=== PATIENT | female | born 1930 | race African-American/Black ===

== ENCOUNTER → 2018-08-01 | Outpatient (CLI) | payer BC ==
[2016-04-05 15:09] VITALS: BP 162/72
--- NOTE | 2018-08-01 15:08 | RAD ---
Indication: Claudication of both lower x-rays TECHNIQUE: Ultrasound ankle-brachial index. COMPARISON: None FINDINGS: Right side: The brachial artery pressures 116. Posterior tibial artery pressure 110. Dorsalis pedis artery pressure 112. Ankle brachial index of 0.93 (borderline). Left side: The brachial artery pressures 120. Posterior tibial artery pressure 105. Dorsalis pedis artery pressure 102. Ankle-brachial index of 0.87 (abnormal). IMPRESSION: As above. Electronically signed by: Navjot Villanueva DO (08/01/2018 3:04 PM) [facility]
== END | disposition home or self-care (01) ==
LOC: US 14:26
PROVIDERS: ATTEND Family Medicine
DX: I73.89 Other specified peripheral vascular diseases (principal)
CPT/HCPCS: 93922

== ENCOUNTER 2019-12-27 11:32 | Inpatient (IN) | payer BC, MEDICAID ==
[~2019-12-27] VITALS: Ht 170.2 cm; Wt 74.8 kg
[2019-12-27] MEDS ORDERED: ASPIRIN CHEWABLE 81 MG TABLET. PO ONE (11:45)
--- NOTE | 2019-12-27 12:11 | PHYS DOC ---
Past Medical History Past Medical History: Diabetes-Type II, High Cholesterol, Hypertension Past Surgical History: Hysterectomy Smoking Status: Never Smoker Alcohol Use: None Drug Use: None General Adult EDM: Chief Complaint: CHEST PAIN HPI: HPI: Patient is an 89-year-old female with a history of diabetes who presents with a one-week history of central chest discomfort. She stated got a little bit worse today. She denies any nausea or diaphoresis. She states typically when she gets up and is moving around it tends to get better. She is never had a heart attack before. She says prior to a week ago she does not recall having any similar symptoms. This morning, she was a little short of breath. She denies any fever chills or sweats. There is been no cough congestion or hemoptysis. [] Review of Systems: Review of Systems: Constitutional: Denies fever or chills. [] Eyes: Denies change in visual acuity. [] HENT: Denies nasal congestion or sore throat. [] Respiratory: Per HPI [] Cardiovascular: Per HPI [] GI: Denies abdominal pain, nausea, vomiting, bloody stools or diarrhea. [] : Denies dysuria. [] Musculoskeletal: Denies back pain or joint pain. [] Integument: Denies rash. [] Neurologic: Denies headache, focal weakness or sensory changes. [] Endocrine: Denies polyuria or polydipsia. [] Lymphatic: Denies swollen glands. [] Psychiatric: Denies depression or anxiety. [] Heart Score: HEART Score for Chest Pain: HEART Score for Chest Pain Response (Comments) Value History Moderately Suspicious 1 ECG Nonspecific Repolarizatio 1 Age > 65 2 Risk Factors 1 or 2 Risk Factors 1 Troponin >1-<3x Normal Limit 1 Total 6 Risk Factors: Risk Factors: DM, Current or recent (<one month) smoker, HTN, HLP, family history of CAD, obesity. Risk Scores: Score 0 - 3: 2.5% MACE over next 6 weeks - Discharge Home Score 4 - 6: 20.3% MACE over next 6 weeks - Admit for Clinical Observation Score 7 - 10: 72.7% MACE over next 6 weeks - Early Invasive Strategies Current Medications: Current Medications Medications (Trade) Dose Ordered Sig/Cipriano Start Time Stop Time Status Last Admin Dose Admin Aspirin (Aspirin Chewable) 324 mg 1X ONCE 12/27/19 11:45 5/10/20 11:51 DC Allergies: Allergies: Allergies Coded Allergies Type Severity Reaction Last Updated Verified No Known Drug Allergies 04/05/16 No Physical Exam: PE: Constitutional: Well developed, well nourished, no acute distress, non-toxic appearance. [] HENT: Normocephalic, atraumatic, bilateral external ears normal, oropharynx moist, no oral exudates, nose normal. [] Eyes: PERRLA, EOMI, conjunctiva normal, no discharge. [] Neck: Normal range of motion, no tenderness, supple, no stridor. [] Cardiovascular:Heart rate regular rhythm, no murmur [] Lungs & Thorax: Bilateral breath sounds clear to auscultation [] Abdomen: Bowel sounds normal, soft, no tenderness, no masses, no pulsatile masses. [] Skin: Warm, dry, no erythema, no rash. [] Back: No tenderness, no CVA tenderness. [] Extremities: No tenderness, no cyanosis, no clubbing, ROM intact, no edema. [] Neurologic: Alert and oriented X 3, normal motor function, normal sensory function, no focal deficits noted. [] Psychologic: Affect normal, judgement normal, mood normal. [] Current Patient Data: Vital Signs: Vital Signs Date Time Temp Pulse Resp B/P (MAP) Pulse Ox O2 Delivery O2 Flow Rate FiO2 12/27/19 11:32 98.2 73 16 143/89 (107) 98 Room Air 98.2 EKG: EKG: EKG: Normal sinus rhythm left axis mild LVH rate is [address]-T changes [] Radiology/Procedures: Radiology/Procedures: [] Course & Med Decision Making: Course & Med Decision Making Pertinent Labs and Imaging studies reviewed. (See chart for details) [ED course: Evaluation reveals an 89-year-old female with atypical sounding chest discomfort that is been ongoing for some time now. Her EKG did not show any obvious ischemic changes but she did have a elevated troponin and some ongoing vague chest discomfort. Therefore she was given Lovenox 1 mg/kg subcu and will be admitted to the hospitalist with a cardiology consult.] Dragon Disclaimer: Dragadelina Disclaimer: This electronic medical record was generated, in whole or in part, using a voice recognition dictation system. Departure Departure Impression: Primary Impression: Chest pain Disposition: ADMITTED INPATIENT Admitting Physician: JUANI Condition: STABLE Referrals: SANDEEP KIM MD (PCP) OZ ROSS DO December 27, 2019 12:11
[2019-12-27 12:19] LABS: BASO % 1 % (0-3); EOS # 0.1 x10^3/uL (0.0-0.7); EOS % 1 % (0-3); HEMATOCRIT 33.3 % (36.0-47.0); HEMOGLOBIN 10.9 g/dL (12.0-15.5); LYMPH % 24 % (24-48); MEAN CORPUSCULAR HEMOGLOBIN 28 pg (25-35); MEAN CORPUSCULAR HGB CONC 33 g/dL (31-37); MEAN CORPUSCULAR VOLUME 85 fL (79-100); MONO # 0.4 x10^3/uL (0.0-1.1); MONO % 10 % (0-9); NEUT # 2.8 x10^3/uL (1.8-7.7); NEUT % 64 % (31-73); PLATELET COUNT 147 x10^3/uL (140-400); RED BLOOD COUNT 3.89 x10^6/uL (3.50-5.40); RED CELL DISTRIBUTION WIDTH 15.2 % (11.5-14.5); WHITE BLOOD COUNT 4.3 x10^3/uL (4.0-11.0)
[2019-12-27 12:28] LABS: CALCIUM 9.2 mg/dL (8.5-10.1); CREATININE 1.2 mg/dL (0.6-1.0); GFR 51.2; POTASSIUM 3.7 mmol/L (3.5-5.1)
[2019-12-27 12:33] LABS: ALBUMIN 3.6 g/dL (3.4-5.0); ALBUMIN/GLOBULIN RATIO 1.1 (1.0-1.7); TOTAL BILIRUBIN 0.6 mg/dL (0.2-1.0); TOTAL PROTEIN 6.9 g/dL (6.4-8.2)
--- NOTE | 2019-12-27 12:41 | PDOC1 ---
History and Physical Date of Admission Date of Admission DATE: 12/27/19 TIME: 12:41 Identification/Chief Complaint Chief Complaint seen in er with chest pain, presented after attending [facility] today, 89-year-old female with a history of diabetes who presents with a one-week history of central chest discomfort. worse today. // denies any nausea or diaphoresis. states typically when she gets up and is moving around it tends to get better. no hx [place], [place] She says prior to a week ago she does not recall having any similar symptoms. This morning, she was a little short of breath. She denies any fever chills or sweats. no cough congestion or hemoptysis/ FEVER Past Medical History Past Medical History Past Medical History Past Medical History Past Medical History: Diabetes-Type II, High Cholesterol, Hypertension Past Surgical History: Hysterectomy Smoking Status: Never Smoker Alcohol Use: None Drug Use: None fhx HTN Family History Family History: Hypertension Social History Smoke: No ALCOHOL: none Drugs: None Current Medications Current Medications Current Medications Aspirin (Aspirin Chewable) 324 mg 1X ONCE PO ; Start 12/27/19 at 11:45; Stop 12/27/19 at 11:51; Status DC Allergies Allergies: Coded Allergies: No Known Drug Allergies (Unverified , 04/05/16) ROS Review of System Review of Systems: 14 PT ROS OTHERWISE NEG Review of Systems: Constitutional: Denies fever or chills. [] Eyes: Denies change in visual acuity. [] HENT: Denies nasal congestion or sore throat. [] Respiratory: Per HPI [] Cardiovascular: Per HPI [] GI: Denies abdominal pain, nausea, vomiting, bloody stools or diarrhea. [] : Denies dysuria. [] Musculoskeletal: Denies back pain or joint pain. [] Integument: Denies rash. [] Neurologic: Denies headache, focal weakness or sensory changes. [] Endocrine: Denies polyuria or polydipsia. [] Lymphatic: Denies swollen glands. [] Psychiatric: Denies depression or anxiety. [] Physical Exam Physical Exam Physical Exam: PE: Constitutional: Well developed, well nourished, no acute distress, non-toxic appearance. [] HENT: Normocephalic, atraumatic, bilateral external ears normal, oropharynx ju st, no oral exudates, nose normal. [] Eyes: PERRLA, EOMI, conjunctiva normal, no discharge. [] Neck: Normal range of motion, no tenderness, supple, no stridor. [] Cardiovascular:Heart rate regular rhythm, no murmur [] Lungs & Thorax: Bilateral breath sounds clear to auscultation [] Abdomen: Bowel sounds normal, soft, no tenderness, no masses, no pulsatile masses. [] Skin: Warm, dry, no erythema, no rash. [] Back: No tenderness, no CVA tenderness. [] Extremities: No tenderness, no cyanosis, no clubbing, ROM intact, no edema. [] Neurologic: Alert and oriented X 3, normal motor function, normal sensory function, no focal deficits noted. [] Psychologic: Affect normal, judgement normal, mood normal. [] General: Alert, Oriented X3, Cooperative HEENT: EOMI, Mucous membr. moist/pink Lungs: Clear to auscultation, Normal air movement Heart: RRR Breasts: Not examined Abdomen: Normal bowel sounds, Soft Rectal Exam: not examined PELVIC: Examination not indicated Extremities: No cyanosis Neuro: Normal speech, Cranial nerves 3-12 NL Psych/Mental Status: Mental status NL, Mood NL Vitals Vitals Vital Signs Date Time Temp Pulse Resp B/P (MAP) Pulse Ox O2 Delivery O2 Flow Rate FiO2 12/27/19 11:32 98.2 73 16 143/89 (107) 98 Room Air 98.2 Labs Labs Laboratory Tests Test 12/27/19 12:10 White Blood Count 4.3 x10^3/uL (4.0-11.0) Red Blood Count 3.89 x10^6/uL (3.50-5.40) Hemoglobin 10.9 g/dL (12.0-15.5) Hematocrit 33.3 % (36.0-47.0) Mean Corpuscular Volume 85 fL (79-100) Mean Corpuscular Hemoglobin 28 pg (25-35) Mean Corpuscular Hemoglobin Concent 33 g/dL (31-37) Red Cell Distribution Width 15.2 % (11.5-14.5) Platelet Count 147 x10^3/uL (140-400) Neutrophils (%) (Auto) 64 % (31-73) Lymphocytes (%) (Auto) 24 % (24-48) Monocytes (%) (Auto) 10 % (0-9) Eosinophils (%) (Auto) 1 % (0-3) Basophils (%) (Auto) 1 % (0-3) Neutrophils # (Auto) 2.8 x10^3/uL (1.8-7.7) Lymphocytes # (Auto) 1.0 x10^3/uL (1.0-4.8) Monocytes # (Auto) 0.4 x10^3/uL (0.0-1.1) Eosinophils # (Auto) 0.1 x10^3/uL (0.0-0.7) Basophils # (Auto) 0.0 x10^3/uL (0.0-0.2) Sodium Level 142 mmol/L (136-145) Potassium Level 3.7 mmol/L (3.5-5.1) Chloride Level 105 mmol/L (98-107) Carbon Dioxide Level 29 mmol/L (21-32) Anion Gap 8 (6-14) Blood Urea Nitrogen 21 mg/dL (7-20) Creatinine 1.2 mg/dL (0.6-1.0) Estimated GFR (Cockcroft-Gault) 51.2 BUN/Creatinine Ratio 18 (6-20) Glucose Level 105 mg/dL (70-99) Calcium Level 9.2 mg/dL (8.5-10.1) Total Bilirubin 0.6 mg/dL (0.2-1.0) Aspartate Amino Transf (AST/SGOT) 20 U/L (15-37) Alanine Aminotransferase (ALT/SGPT) 19 U/L (14-59) Alkaline Phosphatase 70 U/L (46-116) Troponin I Quantitative 0.033 ng/mL (0.000-0.055) UC-Gns-K-Type Natriuretic Peptide 1114 pg/mL (0-449) Total Protein 6.9 g/dL (6.4-8.2) Albumin 3.6 g/dL (3.4-5.0) Albumin/Globulin Ratio 1.1 (1.0-1.7) Laboratory Tests Test 12/27/19 12:10 White Blood Count 4.3 x10^3/uL (4.0-11.0) Red Blood Count 3.89 x10^6/uL (3.50-5.40) Hemoglobin 10.9 g/dL (12.0-15.5) Hematocrit 33.3 % (36.0-47.0) Mean Corpuscular Volume 85 fL (79-100) Mean Corpuscular Hemoglobin 28 pg (25-35) Mean Corpuscular Hemoglobin Concent 33 g/dL (31-37) Red Cell Distribution Width 15.2 % (11.5-14.5) Platelet Count 147 x10^3/uL (140-400) Neutrophils (%) (Auto) 64 % (31-73) Lymphocytes (%) (Auto) 24 % (24-48) Monocytes (%) (Auto) 10 % (0-9) Eosinophils (%) (Auto) 1 % (0-3) Basophils (%) (Auto) 1 % (0-3) Neutrophils # (Auto) 2.8 x10^3/uL (1.8-7.7) Lymphocytes # (Auto) 1.0 x10^3/uL (1.0-4.8) Monocytes # (Auto) 0.4 x10^3/uL (0.0-1.1) Eosinophils # (Auto) 0.1 x10^3/uL (0.0-0.7) Basophils # (Auto) 0.0 x10^3/uL (0.0-0.2) Sodium Level 142 mmol/L (136-145) Potassium Level 3.7 mmol/L (3.5-5.1) Chloride Level 105 mmol/L (98-107) Carbon Dioxide Level 29 mmol/L (21-32) Anion Gap 8 (6-14) Blood Urea Nitrogen 21 mg/dL (7-20) Creatinine 1.2 mg/dL (0.6-1.0) Estimated GFR (Cockcroft-Gault) 51.2 BUN/Creatinine Ratio 18 (6-20) Glucose Level 105 mg/dL (70-99) Calcium Level 9.2 mg/dL (8.5-10.1) Total Bilirubin 0.6 mg/dL (0.2-1.0) Aspartate Amino Transf (AST/SGOT) 20 U/L (15-37) Alanine Aminotransferase (ALT/SGPT) 19 U/L (14-59) Alkaline Phosphatase 70 U/L (46-116) Troponin I Quantitative 0.033 ng/mL (0.000-0.055) DS-Mmx-V-Type Natriuretic Peptide 1114 pg/mL (0-449) Total Protein 6.9 g/dL (6.4-8.2) Albumin 3.6 g/dL (3.4-5.0) Albumin/Globulin Ratio 1.1 (1.0-1.7) Images Images EXAM: Chest, single view. HISTORY: Chest pain. COMPARISON: None. FINDINGS: A frontal view of the chest is obtained. There is lingular and left lower lobe atelectasis, scarring or infiltrate. There is no consolidation, pleural effusion or pneumothorax. The heart is normal in size. IMPRESSION: Lingular and left lower lobe atelectasis, scarring or interstitial infiltrate. Electronically signed by: Blanquita Diaz MD (12/27/2019 12:50 PM) [facility] DICTATED and SIGNED BY: BLANQUITA DIAZ MD DATE: 12/27/19 1250 VTE Prophylaxis Ordered VTE Prophylaxis Devices: Yes VTE Pharmacological Prophylaxi: Yes Assessment/Plan Assessment/Plan IMPRESSION 1. Unstable angina 2. 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
[2019-12-27] MEDS ORDERED: SODIUM PHOSPHATES 19/7GM 133 ML ENEMA. PR PRN (12:45)
[2019-12-27] MEDS ORDERED: ACETAMINOPHEN 325 MG TABLET. PO PRN (12:45)
[2019-12-27] MEDS ORDERED: 0.9 % SODIUM CHLORIDE 10 ML DISP.SYRIN. IV PRN (12:45)
[2019-12-27] MEDS ORDERED: ONDANSETRON PF 4 MG/2 ML VIAL. IV PRN ×2 (12:45)
[2019-12-27] MEDS ORDERED: DOCUSATE SODIUM 100 MG CAPSULE. PO PRN (12:45)
[2019-12-27] MEDS ORDERED: ENOXAPARIN 40 MG/0.4 ML SYRINGE. SQ SCH (12:45)
[2019-12-27] MEDS ORDERED: ALBUTEROL SULFATE 2.5 MG/3 ML NEBU. NEB PRN (12:45)
[2019-12-27] MEDS ORDERED: LORazepam 0.5 MG TABLET PO PRN (12:45)
[2019-12-27] MEDS ORDERED: guaiFENesin ORAL 200 MG/10 ML LIQUID. PO PRN (12:45)
[2019-12-27] MEDS ORDERED: MAG HYDROX/ALUMINUM HYD/SIMETH 30 ML ORAL.SUSP PO PRN (12:45)
--- NOTE | 2019-12-27 12:53 | RAD ---
EXAM: Chest, single view. HISTORY: Chest pain. COMPARISON: None. FINDINGS: A frontal view of the chest is obtained. There is lingular and left lower lobe atelectasis, scarring or infiltrate. There is no consolidation, pleural effusion or pneumothorax. The heart is normal in size. IMPRESSION: Lingular and left lower lobe atelectasis, scarring or interstitial infiltrate. Electronically signed by: Blanquita Diaz MD (12/27/2019 12:50 PM) [facility]
[2019-12-27 13:50] VITALS: BP 190/86
[2019-12-27] MEDS ORDERED: POLY510P31 (14:14)
[2019-12-27 15:00] VITALS: BP 164/91
[2019-12-27] MEDS ORDERED: POLYETHYLENE GLYCOL 3350 BTL 238 GM POWDER PO PRN (16:00)
[2019-12-27] MEDS ORDERED: hydrALAZINE 20 MG/ML VIAL. IVP PRN (16:00)
[2019-12-27] MEDS ORDERED: TRIA1CAP3 PO (17:19)
[2019-12-27] MEDS ORDERED: CELE200C PO (17:19)
[2019-12-27] MEDS ORDERED: OMEP20CA16 PO (17:19)
[2019-12-27] MEDS ORDERED: ZOLP5TAB PO (17:20)
[2019-12-27] MEDS ORDERED: NIFE30TA15 PO (17:20)
[2019-12-27] MEDS ORDERED: ASPI-612 PO (17:20)
[2019-12-27] MEDS ORDERED: ZOLPIDEM 5 MG TABLET. PO PRN (17:45)
[2019-12-27] MEDS ORDERED: DEXTROSE 50% 25 GM / 50ML DISP.SYRIN. IV PRN (18:45)
[2019-12-27] MEDS ORDERED: INSULIN LISPRO 300 UNITS/3 ML VIAL. SQ SCH ×2 (19:00→19:30)
[2019-12-27 19:30] VITALS: BP 116/48
[2019-12-27] MEDS: INSULIN LISPRO 300 UNITS/3 ML VIAL. SQ SCH (21:00)
[2019-12-27] MEDS: ACETAMINOPHEN 325 MG TABLET. PO PRN (21:41)
[2019-12-27] MEDS: CELECOXIB 100 MG CAPSULE. PO SCH (21:41)
[2019-12-27 22:30] VITALS: BP 135/65
[2019-12-28 02:54] VITALS: BP 129/62
[2019-12-28 04:54] LABS: CHOLESTEROL/HDL RATIO 3.5
[2019-12-28 06:32] VITALS: BP 110/59
[2019-12-28] MEDS: INSULIN LISPRO 300 UNITS/3 ML VIAL. SQ SCH ×4 (07:30→20:52)
--- NOTE | 2019-12-28 08:31 | EKG ---
[facility] [address] [place] [address] Test Date: 2019-12-27 Test Time: 11:46:36 Pat Name: SOTO SEWELL Department: Room: 205 Gender: F Iron Worker Apprentice: : [id number] Requested By: OZ ROSS Order Number: [id number] Reading MD: Gustavo Young Measurements Intervals [place] Rate: 74 P: 55 OR: 154 QRS: -11 QRSD: 104 T: 117 QT: 420 QTc: 472 Interpretive Statements SINUS RHYTHM LEFTWARD AXIS LVH WITH REPOLARIZATION ABNORMALITY Electronically Signed On 12-28-2019 11:01:07 CDT by Gustavo Young
[2019-12-28] MEDS: ASPIRIN ENTERIC COATED 81 MG TABLET.DR. PO SCH (08:38)
[2019-12-28] MEDS: TRIAMTERENE/HCTZ 37.5/25MG TABLET. PO SCH (08:38)
[2019-12-28] MEDS: CELECOXIB 100 MG CAPSULE. PO SCH ×2 (08:38→20:51)
[2019-12-28] MEDS: PANTOPRAZOLE 40 MG TABLET.DR. PO SCH (08:40)
--- NOTE | 2019-12-28 10:30 | PDOC2 ---
KATHY DIAZ INTERACTIVE MEDIA DESIGNER 12/28/19 1030: CARDIAC CONSULT DATE OF CONSULT Date of Consult DATE: 12/28/19 TIME: 10:26 REASON FOR CONSULT Reason for Consult: Chest pain REFERRING PHYSICIAN Referring Physician: Dr. Perez SOURCE Source: Chart review, Patient HISTORY OF PRESENT ILLNESS HISTORY OF PRESENT ILLNESS This is an 89 yo female who presented secondary to chest pain. Patient reports tightness in her central chest for last week. Has been worse recently. Reports getting upset seems to make the pain worse. Reports she has been more anxious here recently with the virus outbreak and having to stay at home as she lives alone. Does report associated dizziness with this pain. No diaphoresis, palpitations, or nausea/vomiting. PAST MEDICAL HISTORY Cardiovascular: HTN, Hyperlipidemia GI: GERD Psych: Depression Musculoskeletal: Osteoarthritis Endocrine: Diabetes PAST SURGICAL HISTORY Past Surgical History: No pertinent history FAMILY HISTORY Family History: Heart Disease, High Cholestrol, Hypertension SOCIAL HISTORY Smoke: Quit Drugs: None Lives: Alone CURRENT MEDICATIONS CURRENT MEDICATIONS Current Medications Medications (Trade) Dose Ordered Sig/Cipriano Route PRN Reason Start Time Stop Time Status Last Admin Dose Admin Aspirin (Aspirin Chewable) 324 mg 1X ONCE PO 12/27/19 11:45 12/27/19 11:51 DC 12/27/19 13:01 Acetaminophen (Tylenol) 650 mg PRN Q4HRS PRN PO TEMP OVER 100.4F OR MILD PAIN 12/27/19 12:45 12/27/19 21:41 Enoxaparin Sodium (Lovenox 80mg Syringe) 70 mg 1X ONCE SQ 12/27/19 13:00 12/27/19 13:14 DC 12/27/19 14:56 Aspirin (Ecotrin) 81 mg DAILY PO 12/28/19 09:00 12/28/19 08:38 Celecoxib (CeleBREX) 200 mg BID PO 12/27/19 21:00 12/28/19 08:38 Nifedipine (Procardia Xl) 30 mg DAILY PO 12/28/19 09:00 12/28/19 08:38 Pantoprazole Sodium (Protonix) 40 mg DAILYAC PO 12/28/19 07:30 12/28/19 08:40 Triamterene/HCTZ (Maxzide 37.5/ 25mg) 1 tab DAILY PO 12/28/19 09:00 12/28/19 08:38 ALLERGIES ALLERGIES: Coded Allergies: No Known Drug Allergies (Unverified , 04/05/16) ROS Review of System 14 point ROS conducted with pertinent positives noted above in HPI PHYSICAL EXAM General: Alert, Oriented X3, Cooperative, No acute distress HEENT: Atraumatic, Mucous membr. moist/pink Lungs: Clear to auscultation Heart: Regular rate Abdomen: Soft, No tenderness Extremities: No edema, Normal pulses Skin: No significant lesion Neuro: Normal speech, Strength at 5/5 X4 ext, Sensation intact Psych/Mental Status: Mood NL MUSCULOSKELETAL: Osteoarthritic changes both hands VITALS/I&O VITALS/I&O: Vital Signs Date Time Temp Pulse Resp B/P (MAP) Pulse Ox O2 Delivery O2 Flow Rate FiO2 12/28/19 08:38 58 110/59 12/28/19 06:32 98.0 20 96 Room Air 98.0 I & O 12/27/19 12/27/19 12/28/19 15:00 23:00 07:00 Intake Total 240 ml 450 ml Balance 240 ml 450 ml LABS Lab: Laboratory Tests Test 12/27/19 12:10 12/27/19 16:20 12/27/19 17:17 12/27/19 18:30 White Blood Count 4.3 x10^3/uL (4.0-11.0) Red Blood Count 3.89 x10^6/uL (3.50-5.40) Hemoglobin 10.9 g/dL (12.0-15.5) L Hematocrit 33.3 % (36.0-47.0) L Mean Corpuscular Volume 85 fL (79-100) Mean Corpuscular Hemoglobin 28 pg (25-35) Mean Corpuscular Hemoglobin Concent 33 g/dL (31-37) Red Cell Distribution Width 15.2 % (11.5-14.5) H Platelet Count 147 x10^3/uL (140-400) Neutrophils (%) (Auto) 64 % (31-73) Lymphocytes (%) (Auto) 24 % (24-48) Monocytes (%) (Auto) 10 % (0-9) H Eosinophils (%) (Auto) 1 % (0-3) Basophils (%) (Auto) 1 % (0-3) Neutrophils # (Auto) 2.8 x10^3/uL (1.8-7.7) Lymphocytes # (Auto) 1.0 x10^3/uL (1.0-4.8) Monocytes # (Auto) 0.4 x10^3/uL (0.0-1.1) Eosinophils # (Auto) 0.1 x10^3/uL (0.0-0.7) Basophils # (Auto) 0.0 x10^3/uL (0.0-0.2) Sodium Level 142 mmol/L (136-145) Potassium Level 3.7 mmol/L (3.5-5.1) Chloride Level 105 mmol/L (98-107) Carbon Dioxide Level 29 mmol/L (21-32) Anion Gap 8 (6-14) Blood Urea Nitrogen 21 mg/dL (7-20) H Creatinine 1.2 mg/dL (0.6-1.0) H Estimated GFR (Cockcroft-Gault) 51.2 BUN/Creatinine Ratio 18 (6-20) Glucose Level 105 mg/dL (70-99) H Calcium Level 9.2 mg/dL (8.5-10.1) Total Bilirubin 0.6 mg/dL (0.2-1.0) Aspartate Amino Transferase (AST) 20 U/L (15-37) Alanine Aminotransferase (ALT) 19 U/L (14-59) Alkaline Phosphatase 70 U/L (46-116) Troponin I Quantitative 0.033 ng/mL (0.000-0.055) 0.031 ng/mL (0.000-0.055) 0.033 ng/mL (0.000-0.055) IA-Yhn-S-Type Natriuretic Peptide 1114 pg/mL (0-449) H Total Protein 6.9 g/dL (6.4-8.2) Albumin 3.6 g/dL (3.4-5.0) Albumin/Globulin Ratio 1.1 (1.0-1.7) Thyroid Stimulating Hormone (TSH) 2.572 uIU/mL (0.358-3.74) Glucose (Fingerstick) 185 mg/dL (70-99) H Test 12/27/19 21:20 12/28/19 04:05 12/28/19 07:34 Glucose (Fingerstick) 133 mg/dL (70-99) H 96 mg/dL (70-99) Triglycerides Level 79 mg/dL (0-150) Cholesterol Level 194 mg/dL (0-200) LDL Cholesterol, Calculated 123 mg/dL (0-100) H VLDL Cholesterol, Calculated 16 mg/dL (0-40) Non-HDL Cholesterol Calculated 139 mg/dL (0-129) H HDL Cholesterol 55 mg/dL (40-60) Cholesterol/HDL Ratio 3.5 Laboratory Tests 12/27/19 12:10 Laboratory Tests 12/27/19 12:10 ASSESSMENT/PLAN ASSESSMENT/PLAN 1. Chest pain, atypical. AMI ruled out 2 . Anxiety; as per PCP 3. Hypertension; controlled 4. Hyperlipidemia 5. Diabetes, II 6. CHARLY 7. Depression Recommendations ASA lipids- statin if indicated Echo to assess LV systolic function Consider outpatient ischemic evaluation based upon risk factors Supportive care If echo WNL, may discharge from a CV standpoint and f/u in our office with Dr. Mercado. KAMILLE MERCADO MD 12/28/19 1830: CARDIAC CONSULT ASSESSMENT/PLAN ASSESSMENT/PLAN Patient seen and examined. Agree with QUANTITATIVE STRATEGY ANALYST's assessment and plan. CP with atypical features. IN ruled out. Check 2D echo to assess LVF rule out WMA and evaluate ejection murmur Plan ischemic evaluation as outpatient Thank you for your consultation KATHY DIAZ APRN December 28, 2019 10:30 KAMILLE MERCADO MD December 28, 2019 18:30
--- NOTE | 2019-12-28 10:51 | PDOC ---
PROGRESS NOTES History of Present Illness History of Present Illness VTE Prophylaxis Ordered VTE Prophylaxis Devices: Yes VTE Pharmacological Prophylaxi: Yes Assessment/Plan Assessment/Plan IMPRESSION 1. Unstable angina 2. 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 LABILE HTN 5. possible aortic stenosis plan admit cvc bed serial troponin i consult cardiology dvt prophylaxis ECHO FLP PRN IV BP CONTROL, Hydralazine 10mg q 4 hrs prn bp support 28 min pt exam, chart review, > 50% of time spent with exam, chart review, pt care coordination Vitals Vitals Vital Signs Date Time Temp Pulse Resp B/P (MAP) Pulse Ox O2 Delivery O2 Flow Rate FiO2 12/28/19 08:38 58 110/59 12/28/19 06:32 98.0 20 96 Room Air 98.0 Physical Exam General: Alert, Oriented X3, Cooperative Heart: Regular rate, Other (gr 3/6 distant nimco ) Abdomen: Normal bowel sounds, Soft Extremities: No cyanosis Labs LABS Laboratory Tests Test 12/27/19 12:10 12/27/19 16:20 12/27/19 17:17 12/27/19 18:30 White Blood Count 4.3 x10^3/uL (4.0-11.0) Red Blood Count 3.89 x10^6/uL (3.50-5.40) Hemoglobin 10.9 g/dL (12.0-15.5) Hematocrit 33.3 % (36.0-47.0) Mean Corpuscular Volume 85 fL (79-100) Mean Corpuscular Hemoglobin 28 pg (25-35) Mean Corpuscular Hemoglobin Concent 33 g/dL (31-37) Red Cell Distribution Width 15.2 % (11.5-14.5) Platelet Count 147 x10^3/uL (140-400) Neutrophils (%) (Auto) 64 % (31-73) Lymphocytes (%) (Auto) 24 % (24-48) Monocytes (%) (Auto) 10 % (0-9) Eosinophils (%) (Auto) 1 % (0-3) Basophils (%) (Auto) 1 % (0-3) Neutrophils # (Auto) 2.8 x10^3/uL (1.8-7.7) Lymphocytes # (Auto) 1.0 x10^3/uL (1.0-4.8) Monocytes # (Auto) 0.4 x10^3/uL (0.0-1.1) Eosinophils # (Auto) 0.1 x10^3/uL (0.0-0.7) Basophils # (Auto) 0.0 x10^3/uL (0.0-0.2) Sodium Level 142 mmol/L (136-145) Potassium Level 3.7 mmol/L (3.5-5.1) Chloride Level 105 mmol/L (98-107) Carbon Dioxide Level 29 mmol/L (21-32) Anion Gap 8 (6-14) Blood Urea Nitrogen 21 mg/dL (7-20) Creatinine 1.2 mg/dL (0.6-1.0) Estimated GFR (Cockcroft-Gault) 51.2 BUN/Creatinine Ratio 18 (6-20) Glucose Level 105 mg/dL (70-99) Calcium Level 9.2 mg/dL (8.5-10.1) Total Bilirubin 0.6 mg/dL (0.2-1.0) Aspartate Amino Transf (AST/SGOT) 20 U/L (15-37) Alanine Aminotransferase (ALT/SGPT) 19 U/L (14-59) Alkaline Phosphatase 70 U/L (46-116) Troponin I Quantitative 0.033 ng/mL (0.000-0.055) 0.031 ng/mL (0.000-0.055) 0.033 ng/mL (0.000-0.055) IM-Fbl-D-Type Natriuretic Peptide 1114 pg/mL (0-449) Total Protein 6.9 g/dL (6.4-8.2) Albumin 3.6 g/dL (3.4-5.0) Albumin/Globulin Ratio 1.1 (1.0-1.7) Thyroid Stimulating Hormone (TSH) 2.572 uIU/mL (0.358-3.74) Glucose (Fingerstick) 185 mg/dL (70-99) Test 12/27/19 21:20 12/28/19 04:05 12/28/19 07:34 Glucose (Fingerstick) 133 mg/dL (70-99) 96 mg/dL (70-99) Triglycerides Level 79 mg/dL (0-150) Cholesterol Level 194 mg/dL (0-200) LDL Cholesterol, Calculated 123 mg/dL (0-100) VLDL Cholesterol, Calculated 16 mg/dL (0-40) Non-HDL Cholesterol Calculated 139 mg/dL (0-129) HDL Cholesterol 55 mg/dL (40-60) Cholesterol/HDL Ratio 3.5 Assessment and Plan Assessmemt and Plan Problems Medical Problems: (1) Chest pain Status: Acute Comment Review of Relevant I have reviewed the following items ita (where applicable) has been applied. Labs Laboratory Tests Test 12/27/19 12:10 12/27/19 16:20 12/27/19 17:17 12/27/19 18:30 White Blood Count 4.3 x10^3/uL (4.0-11.0) Red Blood Count 3.89 x10^6/uL (3.50-5.40) Hemoglobin 10.9 g/dL (12.0-15.5) Hematocrit 33.3 % (36.0-47.0) Mean Corpuscular Volume 85 fL (79-100) Mean Corpuscular Hemoglobin 28 pg (25-35) Mean Corpuscular Hemoglobin Concent 33 g/dL (31-37) Red Cell Distribution Width 15.2 % (11.5-14.5) Platelet Count 147 x10^3/uL (140-400) Neutrophils (%) (Auto) 64 % (31-73) Lymphocytes (%) (Auto) 24 % (24-48) Monocytes (%) (Auto) 10 % (0-9) Eosinophils (%) (Auto) 1 % (0-3) Basophils (%) (Auto) 1 % (0-3) Neutrophils # (Auto) 2.8 x10^3/uL (1.8-7.7) Lymphocytes # (Auto) 1.0 x10^3/uL (1.0-4.8) Monocytes # (Auto) 0.4 x10^3/uL (0.0-1.1) Eosinophils # (Auto) 0.1 x10^3/uL (0.0-0.7) Basophils # (Auto) 0.0 x10^3/uL (0.0-0.2) Sodium Level 142 mmol/L (136-145) Potassium Level 3.7 mmol/L (3.5-5.1) Chloride Level 105 mmol/L (98-107) Carbon Dioxide Level 29 mmol/L (21-32) Anion Gap 8 (6-14) Blood Urea Nitrogen 21 mg/dL (7-20) Creatinine 1.2 mg/dL (0.6-1.0) Estimated GFR (Cockcroft-Gault) 51.2 BUN/Creatinine Ratio 18 (6-20) Glucose Level 105 mg/dL (70-99) Calcium Level 9.2 mg/dL (8.5-10.1) Total Bilirubin 0.6 mg/dL (0.2-1.0) Aspartate Amino Transf (AST/SGOT) 20 U/L (15-37) Alanine Aminotransferase (ALT/SGPT) 19 U/L (14-59) Alkaline Phosphatase 70 U/L (46-116) Troponin I Quantitative 0.033 ng/mL (0.000-0.055) 0.031 ng/mL (0.000-0.055) 0.033 ng/mL (0.000-0.055) MD-Are-D-Type Natriuretic Peptide 1114 pg/mL (0-449) Total Protein 6.9 g/dL (6.4-8.2) Albumin 3.6 g/dL (3.4-5.0) Albumin/Globulin Ratio 1.1 (1.0-1.7) Thyroid Stimulating Hormone (TSH) 2.572 uIU/mL (0.358-3.74) Glucose (Fingerstick) 185 mg/dL (70-99) Test 12/27/19 21:20 12/28/19 04:05 12/28/19 07:34 Glucose (Fingerstick) 133 mg/dL (70-99) 96 mg/dL (70-99) Triglycerides Level 79 mg/dL (0-150) Cholesterol Level 194 mg/dL (0-200) LDL Cholesterol, Calculated 123 mg/dL (0-100) VLDL Cholesterol, Calculated 16 mg/dL (0-40) Non-HDL Cholesterol Calculated 139 mg/dL (0-129) HDL Cholesterol 55 mg/dL (40-60) Cholesterol/HDL Ratio 3.5 Laboratory Tests Test 12/27/19 12:10 12/27/19 16:20 12/27/19 17:17 12/27/19 18:30 White Blood Count 4.3 x10^3/uL (4.0-11.0) Red Blood Count 3.89 x10^6/uL (3.50-5.40) Hemoglobin 10.9 g/dL (12.0-15.5) Hematocrit 33.3 % (36.0-47.0) Mean Corpuscular Volume 85 fL (79-100) Mean Corpuscular Hemoglobin 28 pg (25-35) Mean Corpuscular Hemoglobin Concent 33 g/dL (31-37) Red Cell Distribution Width 15.2 % (11.5-14.5) Platelet Count 147 x10^3/uL (140-400) Neutrophils (%) (Auto) 64 % (31-73) Lymphocytes (%) (Auto) 24 % (24-48) Monocytes (%) (Auto) 10 % (0-9) Eosinophils (%) (Auto) 1 % (0-3) Basophils (%) (Auto) 1 % (0-3) Neutrophils # (Auto) 2.8 x10^3/uL (1.8-7.7) Lymphocytes # (Auto) 1.0 x10^3/uL (1.0-4.8) Monocytes # (Auto) 0.4 x10^3/uL (0.0-1.1) Eosinophils # (Auto) 0.1 x10^3/uL (0.0-0.7) Basophils # (Auto) 0.0 x10^3/uL (0.0-0.2) Sodium Level 142 mmol/L (136-145) Potassium Level 3.7 mmol/L (3.5-5.1) Chloride Level 105 mmol/L (98-107) Carbon Dioxide Level 29 mmol/L (21-32) Anion Gap 8 (6-14) Blood Urea Nitrogen 21 mg/dL (7-20) Creatinine 1.2 mg/dL (0.6-1.0) Estimated GFR (Cockcroft-Gault) 51.2 BUN/Creatinine Ratio 18 (6-20) Glucose Level 105 mg/dL (70-99) Calcium Level 9.2 mg/dL (8.5-10.1) Total Bilirubin 0.6 mg/dL (0.2-1.0) Aspartate Amino Transf (AST/SGOT) 20 U/L (15-37) Alanine Aminotransferase (ALT/SGPT) 19 U/L (14-59) Alkaline Phosphatase 70 U/L (46-116) Troponin I Quantitative 0.033 ng/mL (0.000-0.055) 0.031 ng/mL (0.000-0.055) 0.033 ng/mL (0.000-0.055) EY-Xbb-V-Type Natriuretic Peptide 1114 pg/mL (0-449) Total Protein 6.9 g/dL (6.4-8.2) Albumin 3.6 g/dL (3.4-5.0) Albumin/Globulin Ratio 1.1 (1.0-1.7) Thyroid Stimulating Hormone (TSH) 2.572 uIU/mL (0.358-3.74) Glucose (Fingerstick) 185 mg/dL (70-99) Test 12/27/19 21:20 12/28/19 04:05 12/28/19 07:34 Glucose (Fingerstick) 133 mg/dL (70-99) 96 mg/dL (70-99) Triglycerides Level 79 mg/dL (0-150) Cholesterol Level 194 mg/dL (0-200) LDL Cholesterol, Calculated 123 mg/dL (0-100) VLDL Cholesterol, Calculated 16 mg/dL (0-40) Non-HDL Cholesterol Calculated 139 mg/dL (0-129) HDL Cholesterol 55 mg/dL (40-60) Cholesterol/HDL Ratio 3.5 Medications Current Medications Aspirin (Aspirin Chewable) 324 mg 1X ONCE PO Last administered on 12/27/19at 13:01; Start 12/27/19 at 11:45; Stop 12/27/19 at 11:51; Status DC Sodium Chloride (Normal Saline Flush) 3 ml QSHIFT PRN IV AFTER MEDS AND BLOOD DRAWS; Start 12/27/19 at 12:45 Ondansetron HCl (Zofran) 4 mg PRN Q4HRS PRN IV NAUSEA/VOMITING; Start 12/27/19 at 12:45 Acetaminophen (Tylenol) 650 mg PRN Q4HRS PRN PO TEMP OVER 100.4F OR MILD PAIN Last administered on 12/27/19at 21:41; Start 12/27/19 at 12:45 Al Hydroxide/Mg Hydroxide (Mylanta Plus Xs) 30 ml PRN DAILY PRN PO HEARTBURN / GAS; Start 12/27/19 at 12:45 Sodium Monofluorophosphate (Fleet Adult) [address] CONSTIPATION; Start 12/27/19 at 12:45 Docusate Sodium (Colace) 100 mg PRN BID PRN PO CONSTIPATION; Start 12/27/19 at 12:45 Albuterol Sulfate (Ventolin Neb Soln) 2.5 mg PRN Q4HRS PRN NEB SHORTNESS OF BREATH; Start 12/27/19 at 12:45 Guaifenesin (Robitussin) 200 mg PRN Q4HRS PRN PO COUGH; Start 12/27/19 at 12:45 Lorazepam (Ativan) 0.5 mg PRN Q4HRS PRN PO ANXIETY / AGITATION; Start 12/27/19 at 12:45 Enoxaparin Sodium (Lovenox 40mg Syringe) 40 mg Q24H SQ ; Start 12/27/19 at 12:45; Status UNV Ondansetron HCl (Zofran) 4 mg PRN Q8HRS PRN IV NAUSEA/VOMITING; Start 12/27/19 at 12:45; Stop 12/28/19 at 12:44 Acetaminophen (Tylenol) 650 mg PRN Q4HRS PRN PO FEVER > 100.3'F; Start 12/27/19 at 12:45; Stop 12/28/19 at 12:44 Enoxaparin Sodium (Lovenox 80mg Syringe) 70 mg 1X ONCE SQ Last administered on 12/27/19at 14:56; Start 12/27/19 at 13:00; Stop 12/27/19 at 13:14; Status DC Enoxaparin Sodium (Lovenox 30mg Syringe) 30 mg Q24H SQ ; Start 12/28/19 at 14:00 Polyethylene Glycol (miraLAX Powder BULK BOTTLE) 17 gm PRN DAILY PRN PO CON STIPATION- 2ND CHOICE; Start 12/27/19 at 16:00 Hydralazine HCl (Apresoline Inj) 10 mg PRN Q4HRS PRN IVP ELEVATED BP, SEE COMMENTS; Start 12/27/19 at 16:00 Aspirin (Ecotrin) 81 mg DAILY PO Last administered on 12/28/19at 08:38; Start 12/28/19 at 09:00 Zolpidem Tartrate (Ambien) 5 mg PRN QHS PRN PO INSOMNIA; Start 12/27/19 at 17:45 Celecoxib (CeleBREX) 200 mg BID PO Last administered on 12/28/19at 08:38; Start 12/27/19 at 21:00 Nifedipine (Procardia Xl) 30 mg DAILY PO Last administered on 12/28/19at 08:38; Start 12/28/19 at 09:00 Pantoprazole Sodium (Protonix) 40 mg DAILYAC PO Last administered on 12/28/19at 08:40; Start 12/28/19 at 07:30 Triamterene/HCTZ (Maxzide 37.5/ 25mg) 1 tab DAILY PO Last administered on 12/28/19at 08:38; Start 12/28/19 at 09:00 Insulin Human Lispro (HumaLOG) 0-5 UNITS TIDWMEALS SQ ; Start 12/27/19 at 19:00; Stop 12/27/19 at 19:29; Status DC Dextrose (Dextrose 50%-Water Syringe) 12.5 gm PRN Q15MIN PRN IV SEE COMMENTS; Start 12/27/19 at 18:45 Insulin Human Lispro (HumaLOG) 0-5 UNITS QIDACHS SQ ; Start 12/27/19 at 19:30; Stop 12/27/19 at 20:42; Status DC Insulin Human Lispro (HumaLOG) 0-5 UNITS QIDACHS SQ ; Start 12/27/19 at 21:00 Active Scripts Active Reported Ambien (Zolpidem Tartrate) 5 Mg Tablet 5 Mg PO PRN QHS PRN Aspirin Ec (Aspirin) 81 Mg Tablet. 1 Tab PO DAILY Nifedipine Er (Nifedipine) 30 Mg Tablet.er 1 Tab PO DAILY Triamterene-Hctz 37.5-25 Mg Cp (Triamterene/Hydrochlorothiazid) 1 Each Capsule 1 Cap PO DAILY Omeprazole 20 Mg Capsule.dr 1 Cap PO DAILY Celebrex (Celecoxib) 200 Mg Capsule 200 Mg PO BID 30 Days [id number] (Polyethylene Glycol 3350) 510 Gm Powder 17 Gm PRN DAILY PRN Vitals/I & O Vital Sign - Last 24 Hours 12/27/19 12/27/19 12/27/19 12/27/19 11:32 12:15 13:15 13:40 Temp 98.2 98.2 Pulse 73 64 72 76 Resp 16 16 16 16 B/P (MAP) 143/89 (107) 151/67 (95) 161/70 (100) 150/64 (92) Pulse Ox 98 98 98 98 O2 Delivery Room Air Room Air Room Air Room Air 12/27/19 12/27/19 12/27/19 12/27/19 13:50 15:00 15:05 19:30 Temp 97.5 97.8 98.0 97.5 97.8 98.0 Pulse 71 67 66 Resp 18 20 20 B/P (MAP) 190/86 (120) 164/91 (115) 116/48 (70) Pulse Ox 95 98 99 O2 Delivery Room Air Room Air Room Air Room Air 12/27/19 12/27/19 12/28/19 12/28/19 20:00 22:30 02:54 06:32 Temp 98.5 98.1 98.0 98.5 98.1 98.0 Pulse 75 65 58 Resp 20 20 20 B/P (MAP) 135/65 (88) 129/62 (84) 110/59 (76) Pulse Ox 97 97 96 O2 Delivery Room Air Room Air Room Air Room Air 12/28/19 08:38 Pulse 58 B/P (MAP) 110/59 Intake and Output 12/27/19 12/27/19 12/28/19 15:00 23:00 07:00 Intake Total 240 ml 450 ml Balance 240 ml 450 ml SONA VALENCIA MD December 28, 2019 10:51
[2019-12-28 11:00] VITALS: BP 150/66
--- NOTE | 2019-12-28 12:33 | NUR ---
SS following for discharge planning. SS reviewed pt chart and discussed with pt RN. Pt is from home and is currently on room air. Per RN, pt is ambulatory and will discharge to home when medically cleared. SS will continue to follow for discharge planning.
[2019-12-28 12:52] LABS: BASO % 1 % (0-3); EOS # 0.1 x10^3/uL (0.0-0.7); EOS % 3 % (0-3); HEMATOCRIT 32.4 % (36.0-47.0); HEMOGLOBIN 10.5 g/dL (12.0-15.5); LYMPH # 1.2 x10^3/uL (1.0-4.8); LYMPH % 32 % (24-48); MEAN CORPUSCULAR HEMOGLOBIN 28 pg (25-35); MEAN CORPUSCULAR HGB CONC 32 g/dL (31-37); MEAN CORPUSCULAR VOLUME 87 fL (79-100); MONO # 0.4 x10^3/uL (0.0-1.1); MONO % 11 % (0-9); NEUT # 1.9 x10^3/uL (1.8-7.7); NEUT % 53 % (31-73); PLATELET COUNT 140 x10^3/uL (140-400); RED CELL DISTRIBUTION WIDTH 15.5 % (11.5-14.5); WHITE BLOOD COUNT 3.6 x10^3/uL (4.0-11.0)
[2019-12-28 13:01] LABS: CALCIUM 8.6 mg/dL (8.5-10.1); CREATININE 1.3 mg/dL (0.6-1.0); GFR 46.7
[2019-12-28] MEDS ORDERED: ENOXAPARIN 30 MG/0.3 ML SYRINGE. SQ SCH (14:00)
[2019-12-28 15:00] VITALS: BP_SYST 110; BP_SYST 147; BP_DIAS 47; BP_DIAS 60
[2019-12-28 19:36] VITALS: BP 126/44
[2019-12-28] MEDS ORDERED: ATORVASTATIN CALCIUM 20 MG TABLET PO SCH (21:00)
[2019-12-28 22:17] VITALS: BP 114/51
[2019-12-29 02:36] VITALS: BP 123/51
[2019-12-29 07:30] VITALS: BP 140/59
[2019-12-29] MEDS: INSULIN LISPRO 300 UNITS/3 ML VIAL. SQ SCH (07:30)
--- NOTE | 2019-12-29 07:53 | CARD ---
MR#: [id number] Date of Study: 12/28/2019 Ordering Physician: KATHY DIAZ, Referring Physician: KATHY DIAZ, Tech: Gloria Scott PATRICK APPROVED REPORT EXAM: Two-dimensional and M-mode echocardiogram with Doppler and color Doppler. Other Information Quality : Good INDICATION Chest Pain 2D DIMENSIONS RVDd2.4 (2.9-3.5cm)Left Atrium(2D)2.9 (1.6-4.0cm) IVSd1.6 (0.7-1.1cm)Aortic Root(2D)2.2 (2.0-3.7cm) LVDd3.4 (3.9-5.9cm)LVOT Diameter1.7 (1.8-2.4cm) PWd1.5 (0.7-1.1cm)LVDs1.8 (2.5-4.0cm) FS (%) 30.0 %SV38.0 ml LVEF(%)60.0 (>50%) Aortic Valve AoV Peak Tunde.482.9cm/sAoV PBC248.8cm AO Peak GR.93.3mmHgLVOT Peak Tunde.100.3cm/s AO Mean GR.58mmHgAVA (VMAX)0.48cm2 GUMARO (VTI)0.50cm2 Mitral Valve MV E Hvgcmufl28.6cm/sMV DECEL [id number] MV A Tbkdsxzx021.2cm/sE/A Ratio0.7 Tricuspid Valve TR P. Oldxggmq453of/sRAP [id number] TR Peak Gr.77deJuDNHB08rkOb Pulmonary Vein S1 Txqcnxev35.0cm/sD2 Jzwzrjey67.7cm/s LEFT VENTRICLE The left ventricle is normal size. There is moderate concentric left ventricular hypertrophy. The lef t ventricular systolic function is normal. The Ejection Fraction is 60-65%. There is normal LV segmen keri wall motion. Transmitral Doppler flow pattern is Grade I-abnormal relaxation pattern. RIGHT VENTRICLE The right ventricle is normal size. The right ventricular systolic function is normal. ATRIA The left atrium size is normal. The right atrium size is normal. The interatrial septum is intact wit h no evidence for an atrial septal defect or patent foramen ovale as noted on 2-D or Doppler imaging. AORTIC VALVE The aortic valve is severely thickened and displays decreased opening. Doppler and Color Flow reveale d trace aortic regurgitation. Calculated aortic valve area is 0.5 cm2 with maximum pressure gradient of 93 mmHg and mean pressure gradient of 58 mmHg. Doppler and color-flow analysis revealed severe aor tic stenosis. MITRAL VALVE The mitral valve is moderately thickened but opens well. There is no evidence of mitral valve prolaps e. There is no mitral valve stenosis. Doppler and Color-flow revealed trace to mild mitral regurgitat ion. TRICUSPID VALVE The tricuspid valve is normal in structure and function. Doppler and Color Flow revealed mild tricusp id regurgitation. There is mild pulmonary hypertension. The PA pressure was estimated at 36 mmHg. The re is no tricuspid valve stenosis. PULMONIC VALVE The pulmonic valve is not well visualized. Doppler and Color Flow revealed no pulmonic valvular regur gitation. There is no pulmonic valvular stenosis. GREAT VESSELS The aortic root is normal in size. The ascending aorta is not well seen. The IVC is normal in size an d collapses >50% with inspiration. PERICARDIAL EFFUSION There is no evidence of significant pericardial effusion. Critical Notification Critical Value: No <Conclusion> The left ventricular systolic function is normal. The Ejection Fraction is 60-65%. There is normal LV segmental wall motion. There is moderate concentric left ventricular hypertrophy. Transmitral Doppler flow pattern is Grade I-abnormal relaxation pattern. Severe aortic stenosis with calculated aortic valve area is 0.5 cm2, maximum PG of 93 mmHg and mean P G of 58 mmHg. Trace to mild mitral regurgitation. Mild tricuspid regurgitation. The PA pressure was estimated at 36 mmHg. There is no evidence of significant pericardial effusion. Signed by : Caio Mercado, Electronically Approved : 12/29/2019 07:52:38
[2019-12-29 08:14] LABS: BILIRUBIN,URINE NEGATIVE (NEG); CLARITY,URINE CLEAR; COLOR,URINE YELLOW; NITRITE,URINE NEGATIVE (NEG); PROTEIN,URINE NEGATIVE (NEG-TRACE); UROBILINOGEN,URINE 0.2 mg/dL (0.2 mg/dL)
[2019-12-29 08:17] LABS: BACTERIA,URINE FEW /HPF (0-FEW); RBC,URINE 0 /HPF (0-2); SQUAMOUS EPITHELIAL CELL,UR FEW /LPF
[2019-12-29] MEDS: ASPIRIN ENTERIC COATED 81 MG TABLET.DR. PO SCH (08:35)
[2019-12-29] MEDS: ACETAMINOPHEN 325 MG TABLET. PO PRN (08:36)
[2019-12-29] MEDS: TRIAMTERENE/HCTZ 37.5/25MG TABLET. PO SCH (08:36)
[2019-12-29] MEDS: PANTOPRAZOLE 40 MG TABLET.DR. PO SCH (08:36)
[2019-12-29] MEDS: CELECOXIB 100 MG CAPSULE. PO SCH (08:37)
--- NOTE | 2019-12-29 10:12 | NUR ---
SS following up with discharge planning. SS reviewed pt chart and discussed with pt's RN and pt's daughter. Per pt's RN, pt will discharge to home when medically ready. Pt's daughter agreeable to discharge to home and declined home healthcare. SS will continue to follow for discharge planning.
[2019-12-29] MEDS ORDERED: METO-239 PO (10:37)
[2019-12-29 11:00] VITALS: BP 116/58
--- NOTE | 2019-12-29 12:53 | PDOC ---
[facility] [facility] PROGRESS NOTE Chief Complaint Chief Complaint 1. Unstable angina 2. 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 LABILE HTN 5. possible aortic stenosis 6. Severe aortic stenosis History of Present Illness History of Present Illness 12/29/2019 Patient seen and examined Discussed with RN Discussed with case management Chart reviewed The plan is to discharge her and arrange outpatient right and left heart cath to further evaluate her's severe left aortic stenosis Vitals/I&O Vitals/I&O: Vital Signs Date Time Temp Pulse Resp B/P (MAP) Pulse Ox O2 Delivery O2 Flow Rate FiO2 12/29/19 11:00 97.5 64 18 116/58 (77) 96 Room Air 97.5 I & O 12/28/19 12/28/19 12/29/19 15:00 23:00 07:00 Intake Total 600 ml 550 ml 200 ml Output Total 500 ml Balance 600 ml 550 ml -300 ml Physical Exam General: Alert, Oriented X3, Cooperative, No acute distress Heart: Regular rate Abdomen: Soft, No tenderness Extremities: No edema, Normal pulses Skin: No significant lesion Labs Labs: Laboratory Tests Test 12/28/19 17:11 12/28/19 20:18 12/29/19 04:45 12/29/19 08:20 Glucose (Fingerstick) 111 mg/dL (70-99) 144 mg/dL (70-99) 95 mg/dL (70-99) Urine Collection Type Unknown Urine Color Yellow Urine Clarity Clear Urine pH 6.0 (<5.0-8.0) Urine Specific [place] 1.020 (1.000-1.030) Urine Protein Negative mg/dL (NEG-TRACE) Urine Glucose (UA) Negative mg/dL (NEG) Urine Ketones (Stick) Negative mg/dL (NEG) Urine Blood Negative (NEG) Urine Nitrite Negative (NEG) Urine Bilirubin Negative (NEG) Urine Urobilinogen Dipstick 0.2 mg/dL (0.2 mg/dL) Urine Leukocyte Esterase Small (NEG) Urine RBC 0 /HPF (0-2) Urine WBC 5-10 /HPF (0-4) Urine Squamous Epithelial Cells Few /LPF Urine Bacteria Few /HPF (0-FEW) Urine Mucus Slight /LPF Test 12/29/19 12:32 Glucose (Fingerstick) 61 mg/dL (70-99) Assessment and Plan Assessmemt and Plan Problems Medical Problems: (1) Chest pain Status: Acute 1. Unstable angina 2. 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 LABILE HTN 5. possible aortic stenosis Plan Discharge with outpatient cardiac cath She may eventually need a valve replacement that would have to be done at Comment Review of Relevant I have reviewed the following items ita (where applicable) has been applied. Medications: Current Medications Medications (Trade) Dose Ordered Sig/Cipriano Route PRN Reason Start Time Stop Time Status Last Admin Dose Admin Enoxaparin Sodium (Lovenox 30mg Syringe) 30 mg Q24H SQ 12/28/19 14:00 12/28/19 17:43 Atorvastatin Calcium (Lipitor) 20 mg QHS PO 12/28/19 21:00 12/28/19 20:51 VERNON ENRIQUEZ K III DO December 29, 2019 12:53
--- NOTE | 2019-12-29 14:23 | DS ---
DATE OF DISCHARGE: ADMISSION DIAGNOSIS: Chest pain. DISCHARGE DIAGNOSES: Resolving chest pain, severe aortic stenosis. CONSULTS: Cardiology. PROCEDURES: None. HOSPITAL COURSE: The patient is a pleasant middle-aged female who presented with chest pain. She basically has unstable angina, probably secondary to her severe aortic stenosis. We did serial enzymes, serial EKGs. We consulted Cardiology. Today, I saw her and examined her. She is at her baseline. The plan is to discharge her and have her follow up for an outpatient cardiac catheterization to further evaluate her aortic stenosis. I suspect she is going to need eventually aortic valve replacement, but she will need to do that at DISPOSITION: Home. ACTIVITY: As tolerated. DIET: Cardiac. MEDICATIONS: Please see the MRAD. TOTAL TIME: 33 minutes. VERNON ENRIQUEZ DO DR: IRMA/loy JOB#: [id number] / [id number]
--- NOTE | 2019-12-29 14:51 | PDOC ---
EDITH CHILEL HOTEL SECURITY OFFICER 12/29/19 1451: CARDIO Progress Notes Date and Time Date of Service 12/29/2019 Time of Evaluation 1110 Subjective Subjective: No Chest Pain, No shortness of breath, No Palpitations Vitals Vitals Vital Signs Date Time Temp Pulse Resp B/P (MAP) Pulse Ox O2 Delivery O2 Flow Rate FiO2 12/29/19 11:00 97.5 64 18 116/58 (77) 96 Room Air 97.5 Weight Weight [ ] Input and Output Intake and Output Intake and Output 12/29/19 07:00 Intake Total 1350 ml Output Total 500 ml Balance 850 ml Intake Oral 1350 ml Output Urine Total 500 ml # Voids 3 Laboratory Labs Laboratory Tests Test 12/28/19 17:11 12/28/19 20:18 12/29/19 04:45 12/29/19 08:20 Glucose (Fingerstick) 111 mg/dL (70-99) 144 mg/dL (70-99) 95 mg/dL (70-99) Urine Collection Type Unknown Urine Color Yellow Urine Clarity Clear Urine pH 6.0 (<5.0-8.0) Urine Specific [place] 1.020 (1.000-1.030) Urine Protein Negative mg/dL (NEG-TRACE) Urine Glucose (UA) Negative mg/dL (NEG) Urine Ketones (Stick) Negative mg/dL (NEG) Urine Blood Negative (NEG) Urine Nitrite Negative (NEG) Urine Bilirubin Negative (NEG) Urine Urobilinogen Dipstick 0.2 mg/dL (0.2 mg/dL) Urine Leukocyte Esterase Small (NEG) Urine RBC 0 /HPF (0-2) Urine WBC 5-10 /HPF (0-4) Urine Squamous Epithelial Cells Few /LPF Urine Bacteria Few /HPF (0-FEW) Urine Mucus Slight /LPF Test 12/29/19 12:32 Glucose (Fingerstick) 61 mg/dL (70-99) Physical Exam HEENT: Neck Supple W Full Motion Chest: Symmetric LUNGS: Clear to Auscultation Heart: RRR (SR), murmurs (diffuse systolic murmur 4-5/6) Abdomen: Soft N/T Extremities: No Edema, No Calf Tenderness Neurology: alert, oriented, follow commands Assessment Assessment 1. Atypical CP: possibly related to . EF nml. 2 . Very severe : AVR is 0.5 cm2, maximum PG of 93 mmHg and mean PG of 58 mmHg 3. Hypertension; controlled 4. Hyperlipidemia 5. DM2: per PCP 6. CHARLY vs CKD: possibly from poor intake. 7. Depression/anxiety: controlled Recommendations 1. ASA, lipitor 20 mg qhs 2. R/LHC as an outpt will schedule in 2 weeks time. May DC to home today. Discuss to avoid heavy exertion. Will provide TAVR referral pending heart cath finding. 3. DC maxide and replace with toprol. Continue home procardia. 4. Follow up in office after heart cath KAMILLE MCWILLIAMS MD 12/29/192105: CARDIO Progress Notes Assessment Assessment Patient seen and examined. Agree with SENIOR LINUX ADMINISTRATOR's assessment and plan. CP prob non cardiac. 2D echo showed severe - plan outpatient right and left heart cath and possible referral for TAVR EDITH CHILEL APRN December 29, 2019 14:51 KAMILLE MCWILLIAMS MD December 29, 2019 21:06
[2019-12-29] MEDS ORDERED: ATOR20TA PO (15:22)
--- NOTE | 2019-12-29 15:26 | NUR ---
Discharge: Teaching verbal and written. Reviewed medications, follow-up, CP, Cardiac cath, ECHO, cholesterol, ect. Patient and daughter verbalized understanding. 2 prescriptions called into pharmacy Metoprolol and Lipitor per Max into [facility] [phone]. All belongings with patient. Patient assisted off of unit via wheelchair accompanied by nurse. Daughter and granddaughter picked patient up at main entrance.
== END 2019-12-29 14:40 | disposition home or self-care (01) | DRG 307 ==
LOC: ER 11:32 → 2 NORTH 12:42 → OBSVTOIN 12-28 17:56
PROVIDERS: ADMIT Family Medicine; ATTEND Family Medicine
DX: I35.0 Nonrheumatic aortic (valve) stenosis (principal); N17.9 Acute kidney failure, unspecified; J98.11 Atelectasis; R07.89 Other chest pain; D64.9 Anemia, unspecified; E11.22 Type 2 diabetes mellitus with diabetic chronic kidney disease; E78.00 Pure hypercholesterolemia, unspecified; E78.5 Hyperlipidemia, unspecified; F32.9 Major depressive disorder, single episode, unspecified; F41.9 Anxiety disorder, unspecified; I12.9 Hypertensive chronic kidney disease with stage 1 through stage 4 chronic kidney disease, or unspecified chronic kidney disease; I27.20 Pulmonary hypertension, unspecified; N18.3 Chronic kidney disease, stage 3 (moderate); Z82.49 Family history of ischemic heart disease and other diseases of the circulatory system; Z90.710 Acquired absence of both cervix and uterus; K21.9 Gastro-esophageal reflux disease without esophagitis; M19.90 Unspecified osteoarthritis, unspecified site
CPT/HCPCS: 36415; 71045; 80048; 80053; 80061; 81001; 82962; 83540; 83550; 83880; 84443; 84484; 85025; 87086; 93005; 93306; 99285; G0378; G0379; J1650; J1815